=== PATIENT | male | born 1955 | race African-American/Black ===

== ENCOUNTER 2023-10-21 09:54 | Outpatient (AMB) | payer MEDICARE, SELFPAY ==
[2023-10-21 10:12] VITALS: BP 120/70; PULSE 97; TEMP 36.6; O2SAT 97; BMI 23.3
--- NOTE | 2023-10-21 10:12 | AM.OFFWIN_ITS ---
Intake Vital Signs 10/21/23 10:12 Height 6 ft 1 in Weight 177 lb BMI 23.3 BP 120/70 Blood Pressure Location Lt brachial Position Sitting Pulse 97 Pulse Source Pulse Oximeter Temp 97.9 F Temp Source Temporal Artery Scan Pulse Oximetry (%) 97 Oxygen Delivery Method Room Air Intake Visit Reasons: congestion, sinus Intake Note: pt is here today for congestion sinus started 3 months ago Patient Tobacco Use Status: Never used Tobacco Allergies No Known Allergies Allergy (Verified 10/21/23 10:14) Do you need a note to return to daycare/school/sports/work: No HPI HPI Comments History of Present Illness Details 68 y/o male patient who presents to walk in clinic with c/o persistent cough and chest congestion x 3 months. He has been seen multiple times in the Urgent cares and given Abx with little relief. He has also had 2 negative chest Xrays in the past 3 months. Denies Asthma or COPD history. Denies fevers or chills. 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 PFSH Social History Patient Tobacco Use Status: Never used Tobacco Review of Systems Const All systems reviewed & are unremarkable except as noted in HPI and below Physical Exam Vital Signs: Last Vital Signs Temp 97.9 F 10/21/23 10:12 Pulse 97 10/21/23 10:12 BP 120/70 10/21/23 10:12 Pulse Ox 97 10/21/23 10:12 Oxygen Delivery Method Room Air 10/21/23 10:12 BMI result Body Mass Index 23.3 Const General: comfortable and no acute distress HEENT Head: Yes normocephalic and Yes atraumatic Ears: external ears normal and TM's normal bilaterally General nose exam: Normal nasal mucous membranes and turbinates present Mouth: moist mucous membranes Throat: Yes posterior oropharynx normal Resp Effort & Inspection: normal respiratory effort and able to speak in complete sentences Auscultation: clear to auscultation bilaterally Cardio Rate: regular rate Rhythm: regular rhythm Assessment & Plan Assessment & Plan (1) Cough in adult: Code(s): R05.9 - Cough, unspecified Plan: - OTC Cough/cold remedies - Rest - Hydrate with warm fluids with honey - SARs Orders: Orders SARS-CoV2/FLU/RSV Today R05.9 - Cough, unspecified XR chest 2V Today Medications: New dextromethorphan HBr (ssin Cough (DM only)) 15 mg (5 mL) PO Q8H 118 mL 0RF R05.9 - Cough, unspecified azithromycin 500 mg PO DAILY 3 days 3 tabs 0RF R05.9 - Cough, unspecified Coding Level of Care Code Est Pt Level 3 (78878) Diagnoses Cough in adult R05.9 Time Spent (min) 15
== END 2023-10-21 11:08 | disposition home or self-care (01) ==
PROVIDERS: Visit Provider Nurse Practitioner Family
DX: R05.9 Cough, unspecified (principal)
CPT/HCPCS: 99213

== ENCOUNTER 2023-10-21 10:46 | Outpatient (REF) | payer MEDICARE, SELFPAY ==
--- NOTE | ~2023-10-21 | XR_ITS ---
EXAMINATION: XR CHEST CLINICAL INFORMATION: Persistent cough 3 months COMPARISON: None available. TECHNIQUE: 2 views of the chest were obtained. FINDINGS: Patchy radiopacities involving the right mid lung field may reflect underlying infectious/inflammatory etiology. Questionable spiculated nodular focus along the right posterior fifth rib may reflect a nodule versus consolidative focus. No pneumothorax. Trachea is midline. Cardiac mediastinal silhouette is not enlarged. No large pleural effusion. Osseous structures are intact. Soft tissues are unremarkable. XR/XR chest 2V IMPRESSION: 1. Patchy radiopacities involving the right mid lung field may reflect underlying infectious/inflammatory etiology. 2. Questionable spiculated nodular focus along the right posterior fifth rib may reflect a nodule versus consolidative focus.
[2023-10-21 14:48] LABS: Influenza A PCR NEGATIVE (Negative); Influenza B PCR NEGATIVE (Negative); Resp Syncy Virus RNA Qual PCR NEGATIVE (Negative); SARS COV2 PCR INHOUSE POSITIVE (Negative)
== END 2023-10-21 10:47 | disposition home or self-care (01) ==
LOC: HO.HMGCX 10:46
PROVIDERS: Visit Provider Nurse Practitioner Family
DX: R05.9 Cough, unspecified (principal); Z11.52 Encounter for screening for COVID-19; Z20.828 Contact with and (suspected) exposure to other viral communicable diseases
CPT/HCPCS: 0241U; 71046